=== PATIENT | female | born 1955 | race African-American/Black ===

== ENCOUNTER 2018-01-22 20:41 | Inpatient (IN) | payer BC ==
[2018-01-22] MEDS ORDERED: Aspirin 325 MG TAB ONE (22:03)
[2018-01-23] MEDS ORDERED: niCARdipine HCl 25 MG in Sodium Chloride 0.9% 250 ML 240 ML IVPB SCH ×2 (01:30→05:30)
[2018-01-23] MEDS ORDERED: Metoprolol Tartrate 50 MG TAB PO SCH ×2 (02:00→09:00)
[2018-01-23] MEDS ORDERED: Senokot S 8.6-50 MG TAB PO PRN (03:35)
[2018-01-23] MEDS ORDERED: Zolpidem Tartrate 5 MG TAB PO PRN (03:35)
[2018-01-23] MEDS ORDERED: Ondansetron ODT 4 MG TAB PO PRN (03:35)
[2018-01-23] MEDS ORDERED: Bisacodyl 5 MG TAB PO PRN (03:35)
[2018-01-23] MEDS ORDERED: Ondansetron PF 4 MG/2 ML Vial IVP PRN (03:35)
[2018-01-23] MEDS ORDERED: Loperamide HCl 2 MG CAP PO PRN (07:46)
[2018-01-23] MEDS ORDERED: Eucerin (Mineral Oil/Petrolatum,White) 30 gm Jar TOP PRN (07:46)
[2018-01-23] MEDS ORDERED: Diabetic Tussin 200 MG/10 ML UDCUP PO PRN (07:46)
[2018-01-23] MEDS ORDERED: Sodium Chloride 0.65% Nasal 44 ML BOT EA NARE PRN (07:46)
[2018-01-23] MEDS ORDERED: Artificial Tears 18 DROP/0.9 ML EA EYE PRN (07:46)
[2018-01-23] MEDS ORDERED: Labetalol HCl 100 MG/20 ML VIAL SLOW IVP PRN (07:46)
[2018-01-23] MEDS ORDERED: hydrALAZINE 20 MG/ML VIAL SLOW IVP PRN (07:46)
[2018-01-23] MEDS ORDERED: Loratadine 10 MG TAB PO PRN (07:46)
[2018-01-23] MEDS ORDERED: Cepastat Lozenges 1 LOZ PO PRN (07:46)
--- NOTE | 2018-01-23 07:52 | HP ---
CHIEF COMPLAINT: Hypertension. HISTORY OF PRESENT ILLNESS: This is a 62-year-old female with past medical history of atrial fibrillation, hypertension, and noncompliance, presenting with hypertension. The patient was transferred from [facility]. The patient had a blood pressure of 227/136. The patient states that she has not been able to afford her blood pressure medications and she runs out of the medications a week ago. The patient has been having symptoms of vision changes on the day of admission and the patient states that the vision change has not progressively gotten better since she has been treated in the ED and her blood pressure has been lowered. The patient also endorses sinus congestion and visual changes, which have been ongoing for the past 2 days. Otherwise, the patient denies fever, chills, dizziness, headaches, shortness of breath, palpitations, abdominal pain, dysuria, hematuria, hematochezia, or melena. REVIEW OF SYSTEMS: Positive for malaise, vision changes, and hypertension. Otherwise as documented in the HPI, all other systems were reviewed and are negative. PAST MEDICAL HISTORY: Hypertension, atrial fibrillation. FAMILY HISTORY: Nonsignificant to this visit. PAST SURGICAL HISTORY: Tubal ligation. PSYCHIATRIC HISTORY: No previous psych history. SOCIAL HISTORY: The patient drinks occasionally on weekends. The patient denies any illicit drug use. The patient smokes half a pack a day, and the patient has been smoking for the past 20 years. The patient lives at home with her family. ALLERGIES: NO KNOWN DRUG ALLERGIES. CURRENT MEDICATIONS: None. PHYSICAL EXAMINATION: VITAL SIGNS: The patient's blood pressure 153/100, pulse of 99, respiratory rate of 21, and O2 saturation of 99 on room air. GENERAL: The patient is lying in bed. She states that she is feeling well. Does not appear to be in any acute distress. The patient is alert and oriented x3. HEENT: Normocephalic, atraumatic. Pupils are equally round and reactive to light. Extraocular movements are intact. No scleral icterus. No conjunctival pallor. NECK: Trachea is midline. Full range of motion. Supple. RESPIRATORY: Clear to auscultation bilaterally. No wheezing, no rales, no rhonchi are appreciated. CARDIAC: The patient is tachycardic. ABDOMEN: Soft, nontender, and nondistended. Obese abdomen. Positive bowel sounds in all quadrants. EXTREMITIES: 5/5 upper extremity strength. Good pulses bilaterally. Lower extremities; 5/5 lower extremity strength. the patient has 1+ pitting edema. NEUROLOGIC: Cranial nerves II through XII grossly intact. No neurologic deficits noted. SKIN: Warm, dry, and intact. PSYCH: Normal affect. IMAGING DATA: CT of the head is negative. LABORATORY DATA: WBC is 7.2, hemoglobin is 13.7, hematocrit is 45.1, and platelet count is 392. Sodium is 136, potassium is 4.3, chloride is 104, carbon dioxide of 20, anion gap of 16, creatinine is 1.04, and glucose is 157. AST is 37, ALT is 39, and alkaline phosphatase is 165. ASSESSMENT AND PLAN: This is a 62-year-old female, being admitted for: 1. Hypertensive emergency. At this point, the patient is being admitted to the CCU. The patient is on nicardipine drip. We are going to continue nicardipine drip. We are going to monitor the patient's blood pressure closely. We are going to try and keep the patient's blood pressure around 150 to 160 systolic. 2. Hypertension, uncontrolled due to noncompliance. We have consulted disease case manager rn. The patient will benefit from coupons to the outpatient for medications and the patient has been advised on compliance with her medications. 3. Atrial fibrillation: The patient does not take her medications. At this point, the patient has been advised to take her medication and to follow up on her health and to visit her primary care doctors. 4. Deep vein thrombosis/gastrointestinal prophylaxis. Job ID: [id number]
[2018-01-23] MEDS: Acetaminophen 325 MG TAB PO PRN ×2 (08:18→19:02)
[2018-01-23] MEDS: Enoxaparin Sodium 40 MG/0.4 ML SYRINGE SC SCH (08:19)
[2018-01-23] MEDS: Metoprolol Tartrate 50 MG TAB PO SCH ×2 (08:19→22:09)
[2018-01-23] MEDS: Famotidine 20 MG TAB PO SCH ×2 (08:19→21:55)
[2018-01-23] MEDS ORDERED: Famotidine/PF 20 mg/2ml Vial SLOW IVP SCH (09:00)
[2018-01-23] MEDS ORDERED: Lisinopril/Hydrochlorothiazide 10 mg/12.5 mg Tablet PO SCH (10:45)
--- NOTE | 2018-01-23 10:46 | PDOC.PN ---
- Subjective Encounter Start Date: 01/23/18 Encounter Start Time: 07:30 Patient seen and examined. No new complaints. No overnight events he has visual loss on right side - Objective Resuscitation Status - Order Detail: 01/23/18 03:35 Resuscitation Status Routine Resuscitation Status: FULL: Full Resuscitation MAR Reviewed: Yes Vital Signs & Weight: Vital Signs (12 hours) Temp Pulse Ox 01/23/18 07:37 96 01/23/18 07:00 98.2 F 01/23/18 04:00 98.3 F 01/23/18 02:00 98.7 F 01/23/18 01:45 99 Weight Admit Weight 235 lb 7.259 oz Weight 235 lb 7.259 oz Most Recent Monitor Data Heart Rate from ECG 67 NIBP 159/90 NIBP BP-Mean 113 Respiration from ECG 16 SpO2 96 I&O: 01/22/18 01/23/18 01/24/18 06:59 06:59 06:59 Intake Total 262.7 Output Total 200 0 Balance 62.7 0 EKG Reviewed by me: Yes (nsr) Phys Exam - Physical Examination Constitutional: NAD HEENT: PERRLA, moist MMs, sclera anicteric Neck: no JVD, supple Respiratory: no wheezing, no rales, no rhonchi Cardiovascular: RRR, no significant murmur, no rub Gastrointestinal: soft, non-tender, no distention, positive bowel sounds Musculoskeletal: no edema, pulses present Neurological: non-focal, normal sensation, moves all 4 limbs Lymphatic: no nodes Psychiatric: normal affect, A&O x 3 Skin: no rash, normal turgor Dx/Plan (1) Hypertensive emergency Code(s): I16.1 - HYPERTENSIVE EMERGENCY Status: Acute (2) Hypertension Code(s): I10 - ESSENTIAL (PRIMARY) HYPERTENSION Status: Chronic (3) Obesity (BMI 30-39.9) Code(s): E66.9 - OBESITY, UNSPECIFIED Status: Chronic (4) Tobacco abuse Code(s): Z72.0 - TOBACCO USE Status: Chronic (5) Visual changes Code(s): H53.9 - UNSPECIFIED VISUAL DISTURBANCE Status: Acute - Plan cont current plan of care * will add lisinopril/hctz 10/12.5 mg po today * will wean off cardene drip * will get mri brain * lipid profile tomorrow * once cardene drip off, transfer to tele/stroke * will adjust bp meds * medication reviewed as below * symptomatic treatment . Review of Systems - Review of Systems Eyes: Vision Change. negative: Pain, Conjunctivae Inflammation, Eyelid Inflammation, Redness, Other ENT: negative: Ear Pain, Ear Discharge, Nose Pain, Nose Discharge, Nose Congestion, Mouth Pain, Mouth Swelling, Throat Pain, Throat Swelling, Other Respiratory: negative: Cough, Dry, Shortness of Breath, Hemoptysis, SOB with Excertion, Pleuritic Pain, Sputum, Wheezing Cardiovascular: negative: chest pain, palpitations, orthopnea, paroxysmal nocturnal dyspnea, edema, light headedness, other Gastrointestinal: negative: Nausea, Vomiting, Abdominal Pain, Diarrhea, Constipation, Melena, Hematochezia, Other Genitourinary: negative: Dysuria, Frequency, Incontinence, Hematuria, Retention , Other Musculoskeletal: negative: Neck Pain, Shoulder Pain, Arm Pain, Back Pain, Hand Pain, Leg Pain, Foot Pain, Other Skin: negative: Rash, Lesions, Saroj, Bruising, Other - Medications/Allergies Allergies/Adverse Reactions: Allergies Allergy/AdvReac Type Severity Reaction Status Date / Time No Known Drug Allergies Allergy Verified 01/23/18 01:38 Medications: Current Medications Acetaminophen (Tylenol) 650 mg PO Q4H PRN PRN Reason: Headache/Fever/Mild Pain (1-3) Last Admin: 01/23/18 08:18 Dose: 650 mg Artificial Tears (Tears Naturale) 2 drop EA EYE PRN PRN PRN Reason: Dry Eyes Bisacodyl (Dulcolax) 10 mg PO DAILYPRN PRN PRN Reason: Constipation Clonidine (Catapres) 0.1 mg PO Q4H PRN PRN Reason: SBP Greater Than 170 Enoxaparin Sodium (Lovenox) 40 mg SC 0900 [facility] Last Admin: 01/23/18 08:19 Dose: 40 mg Famotidine (Pepcid) 20 mg SLOW IVP Q12HR [facility] Last Admin: 01/23/18 07:23 Dose: Not Given Famotidine (Pepcid) 20 mg PO BID [facility] Last Admin: 01/23/18 08:19 Dose: 20 mg Guaifenesin (Robitussin Sf) 200 mg PO Q4H PRN PRN Reason: Cough Lisinopril/HCTZ (Prinizide 10-12.5) 1 tab PO NOW [facility] Stop: 01/23/18 12:45 Lisinopril/HCTZ (Prinizide 10-12.5) 1 tab PO DAILY [facility] Hydralazine HCl (Apresoline) 10 mg SLOW IVP Q4H PRN PRN Reason: SBP Greater Than 170 Nicardipine HCl 25 mg/ Sodium (Chloride) 250 mls @ 0 mls/hr IVPB INF MIR[place]; Protocol Labetalol HCl (Normodyne) 20 mg SLOW IVP Q4H PRN PRN Reason: SBP > 180 and HR >/= 70 Loperamide HCl (Imodium) 2 mg PO PRN PRN PRN Reason: Diarrhea/Loose Stools Loratadine (Claritin) 10 mg PO DAILYPRN PRN PRN Reason: Sinus Symptoms Metoprolol Tartrate (Lopressor) 50 mg PO BID [facility] Last Admin: 01/23/18 08:19 Dose: 50 mg Mineral Oil/White Petrolatum (Eucerin Cream) 0 gm TOP BIDPRN PRN PRN Reason: Dry Skin Ondansetron HCl (Zofran Odt) 4 mg PO Q6H PRN PRN Reason: Nausea/Vomiting Ondansetron HCl (Zofran) 4 mg IVP Q6H PRN PRN Reason: Nausea/Vomiting Senna/Docusate Sodium (Senokot S) 2 tab PO BID PRN PRN Reason: Constipation Sodium Chloride (Flush - Normal Saline) 10 ml IVF Q12HR [facility] Last Admin: 01/23/18 10:40 Dose: 10 ml Sodium Chloride (Flush - Normal Saline) 10 ml IVF PRN PRN PRN Reason: Saline Flush Sodium Chloride ([place] Nasal [place] 0.65%) 0 ml EA NARE QIDPRN PRN PRN Reason: Nasal Congestion Throat Lozenges (Cepastat Lozenges) 1 [place] PO Q2H PRN PRN Reason: Sore Throat Zolpidem Tartrate (Ambien) 5 mg PO HSPRN PRN PRN Reason: Insomnia
--- NOTE | 2018-01-23 12:01 | CON ---
DATE OF CONSULTATION: 01/23/2018 SERVICE: Pulmonary Medicine. REASON FOR CONSULT: ICU patient. HISTORY OF PRESENT ILLNESS: The patient is a 62-year-old female with past medical history significant for essentially nothing other than hypertension. She was in her usual state of health when she had an abrupt onset of visual disturbances. She had a right visual field deficit. Ultimately, she presented to the emergency department. They worked her up and called her hypertensive emergency. They put her on a Cardizem drip and tucked her in the ICU. Overnight, this has been weaned down significantly. She denies any fevers, chills, nausea, or vomiting. Prior to the abrupt onset of neurologic changes, she had absolutely no complaints. She does not have any known lung problems. PAST MEDICAL HISTORY: 1. Hypertension. 2. Atrial fibrillation. FAMILY HISTORY: Noncontributory. PAST SURGICAL HISTORY: Tubal ligation. SOCIAL HISTORY: She occasionally drinks some alcohol in the weekends, but never to excess at this point in her life. She denies any illicit drugs. She smokes half a pack on a daily basis and has a greater than [id number] history of smoking. She has no exposure to chemicals, dust, asbestos, or tuberculosis. ALLERGIES: NO KNOWN DRUG ALLERGIES. MEDICATIONS: List of her inpatient medications was reviewed. Multiple updates were made. PHYSICAL EXAMINATION: VITAL SIGNS: Afebrile, pulse 67, blood pressure 132/82, respirations 13, and saturation 100% on room air. GENERAL: The patient is awake, alert, in no apparent distress. LUNGS: Excellent air entry with no prolonged expiratory phase, wheezing, rhonchi, or crackles. HEART: Normal rate and regular. ABDOMEN: Soft, nontender, and nondistended. Bowel sounds are positive. MUSCULOSKELETAL: No cyanosis or clubbing. There is no pitting in the bilateral lower extremities. NEUROLOGIC: She has a right field deficit. Otherwise, cranial nerves are intact. Strength is symmetric throughout upper and lower extremities, and her sensation is also intact. Cerebellar findings including dysdiadochokinesia and rapidly alternating movements are normal. IMAGIN. CT of the brain demonstrates no acute intracranial abnormality. There is a remote left jordan-occipital infarction. 2. Chest x-ray demonstrates no acute cardiopulmonary abnormality. ASSESSMENT: 1. Cerebrovascular accident of the left occipital region, suspected. 2. Hypertension. 3. History of atrial fibrillation, currently in sinus rhythm. DISCUSSION AND PLAN: The patient will go for an MRI of the brain. We will put her on an aspirin and Neurology consultation will be placed. Pulmonary Critical Care will continue to follow along while she remains in this location. I do not want her blood pressures to be aggressively controlled as this is not a hypertensive emergency. It is more likely to represent an acute CVA in the occipital region. Job ID: [id number]
[2018-01-23] MEDS: cloNIDine 0.1 MG TAB PO PRN (22:09)
[2018-01-24] MEDS: cloNIDine 0.1 MG TAB PO PRN (03:34)
[2018-01-24 05:27] VITALS: BMI 39.9
[2018-01-24 05:27] LABS: #Basophils 0.1 thou/uL (0.0-0.2); #Eosinphils 0.1 thou/uL (0.0-0.7); #Lymphocytes 3.2 thou/uL (1.20-3.40); #Monocytes 0.9 thou/uL (0.11-0.59); #Neutrophils 4.9 thou/uL (1.40-6.50); %Basophils 0.6 % (0.0-1.0); %Eosinophils 0.6 % (0.0-10.0); %Lymphocytes 35.1 % (21.0-51.0); %Monocytes 9.3 % (0.0-10.0); %Neutrophils 54.3 % (42.0-75.0); Hemoglobin 12.8 g/dL (12.0-16.0); Mean Corpuscular HGB CONC 31.3 g/dL (32.0-36.0); Mean Corpuscular Hemoglobin 28.7 pg (27.0-31.0); Mean Corpuscular Volume 91.7 fL (78.0-98.0); Mean Platelet Volume 8.2 fL (7.4-10.4); Platelet Count 303 thou/uL (130-400); RBC Distribution Width 13.2 % (11.5-14.5); Red Blood Cell (RBC) Count 4.46 mill/uL (4.20-5.40); White Blood Cell (WBC) Count 9.1 thou/uL (4.8-10.8)
[2018-01-24 05:36] LABS: Anion Gap 11 mmol/L (10-20); BUN (Urea Nitrogen) 16 mg/dL (9.8-20.1); Calc. Creatinine Clearance 99 mL/min (70-130); Calcium 9.5 mg/dL (7.8-10.44); Carbon Dioxide 25 mmol/L (23-31); Cardiac Risk 4.9 (Less than 4.5); Chloride 105 mmol/L (98-107); Cholesterol 193 mg/dl (< 200 Desired); Estimated GFR-MDRD 68; Glucose 109 mg/dL (80-115); HDL Cholesterol 39 mg/dL (>60 Neg Risk); LDL Cholesterol, Calculated 134 mg/dL; Potassium 4.2 mmol/L (3.5-5.1); Sodium 137 mmol/L (136-145); Triglycerides 99 mg/dL (Less than 150)
[2018-01-24] MEDS: Enoxaparin Sodium 40 MG/0.4 ML SYRINGE SC SCH (09:14)
[2018-01-24] MEDS: Famotidine 20 MG TAB PO SCH (09:14)
[2018-01-24] MEDS: Metoprolol Tartrate 50 MG TAB PO SCH ×2 (09:14→21:10)
[2018-01-24] MEDS: Lisinopril/Hydrochlorothiazide 10 mg/12.5 mg Tablet PO SCH (09:17)
[2018-01-24] MEDS: Acetaminophen 325 MG TAB PO PRN (10:08)
--- NOTE | 2018-01-24 11:58 | PDOC.PN ---
- Subjective Encounter Start Date: 01/24/18 Encounter Start Time: 10:00 Patient seen and examined. No new complaints. No overnight events - Objective Resuscitation Status - Order Detail: 01/23/18 03:35 Resuscitation Status Routine Resuscitation Status: FULL: Full Resuscitation MAR Reviewed: Yes Vital Signs & Weight: Vital Signs (12 hours) Temp Pulse BP 01/24/18 09:17 77 148/74 H 01/24/18 04:00 98.1 F 01/24/18 03:34 157/91 H 01/24/18 00:00 98.9 F Weight Admit Weight 235 lb 7.259 oz Weight 240 lb 1.334 oz Most Recent Monitor Data Heart Rate from ECG 70 NIBP 148/74 NIBP BP-Mean 98 Respiration from ECG 17 SpO2 98 I&O: 01/23/18 01/24/18 01/25/18 06:59 06:59 06:59 Intake Total 262.7 1517 Output Total 200 775 Balance 62.7 742 Result Diagrams: 01/24/18 04:31 01/24/18 04:31 EKG Reviewed by me: Yes (nsr) Phys Exam - Physical Examination Constitutional: NAD HEENT: PERRLA, moist MMs, sclera anicteric Neck: no JVD, supple Respiratory: no wheezing, no rales, no rhonchi Cardiovascular: RRR, no significant murmur, no rub Gastrointestinal: soft, non-tender, no distention, positive bowel sounds Musculoskeletal: no edema, pulses present Neurological: non-focal, normal sensation, moves all 4 limbs Lymphatic: no nodes Psychiatric: normal affect Skin: no rash, normal turgor Dx/Plan (1) Hypertensive emergency Code(s): I16.1 - HYPERTENSIVE EMERGENCY Status: Acute (2) Hypertension Code(s): I10 - ESSENTIAL (PRIMARY) HYPERTENSION Status: Chronic (3) Obesity (BMI 30-39.9) Code(s): E66.9 - OBESITY, UNSPECIFIED Status: Chronic (4) Tobacco abuse Code(s): Z72.0 - TOBACCO USE Status: Chronic (5) Visual changes Code(s): H53.9 - UNSPECIFIED VISUAL DISTURBANCE Status: Acute - Plan cont current plan of care * MRI brain today * transfer to stroke floor * medication reviewed as below * symptomatic treatment * adjust BP meds. Review of Systems - Review of Systems Eyes: Vision Change. negative: Pain, Conjunctivae Inflammation, Eyelid Inflammation, Redness, Other ENT: negative: Ear Pain, Ear Discharge, Nose Pain, Nose Discharge, Nose Congestion, Mouth Pain, Mouth Swelling, Throat Pain, Throat Swelling, Other Respiratory: negative: Cough, Dry, Shortness of Breath, Hemoptysis, SOB with Excertion, Pleuritic Pain, Sputum, Wheezing Cardiovascular: negative: chest pain, palpitations, orthopnea, paroxysmal nocturnal dyspnea, edema, light headedness, other Gastrointestinal: negative: Nausea, Vomiting, Abdominal Pain, Diarrhea, Constipation, Melena, Hematochezia, Other Genitourinary: negative: Dysuria, Frequency, Incontinence, Hematuria, Retention , Other Musculoskeletal: negative: Neck Pain, Shoulder Pain, Arm Pain, Back Pain, Hand Pain, Leg Pain, Foot Pain, Other Skin: negative: Rash, Lesions, Saroj, Bruising, Other - Medications/Allergies Allergies/Adverse Reactions: Allergies Allergy/AdvReac Type Severity Reaction Status Date / Time No Known Drug Allergies Allergy Verified 01/23/18 01:38 Medications: Current Medications Acetaminophen (Tylenol) 650 mg PO Q4H PRN PRN Reason: Headache/Fever/Mild Pain (1-3) Last Admin: 01/24/18 10:08 Dose: 650 mg Artificial Tears (Tears Naturale) 2 drop EA EYE PRN PRN PRN Reason: Dry Eyes Bisacodyl (Dulcolax) 10 mg PO DAILYPRN PRN PRN Reason: Constipation Clonidine (Catapres) 0.1 mg PO Q4H PRN PRN Reason: SBP Greater Than 170 Last Admin: 01/24/18 03:34 Dose: 0.1 mg Enoxaparin Sodium (Lovenox) 40 mg SC 0900 [facility] Last Admin: 01/24/18 09:14 Dose: 40 mg Famotidine (Pepcid) 20 mg PO BID [facility] Last Admin: 01/24/18 09:14 Dose: 20 mg Guaifenesin (Robitussin Sf) 200 mg PO Q4H PRN PRN Reason: Cough Lisinopril/HCTZ (Prinizide 10-12.5) 1 tab PO DAILY [facility] Last Admin: 01/24/18 09:17 Dose: 1 tab Hydralazine HCl (Apresoline) 10 mg SLOW IVP Q4H PRN PRN Reason: SBP Greater Than 170 Labetalol HCl (Normodyne) 20 mg SLOW IVP Q4H PRN PRN Reason: SBP > 180 and HR >/= 70 Loperamide HCl (Imodium) 2 mg PO PRN PRN PRN Reason: Diarrhea/Loose Stools Loratadine (Claritin) 10 mg PO DAILYPRN PRN PRN Reason: Sinus Symptoms Last Admin: 01/24/18 10:08 Dose: 10 mg Metoprolol Tartrate (Lopressor) 50 mg PO BID [facility] Last Admin: 01/24/18 09:14 Dose: 50 mg Mineral Oil/White Petrolatum (Eucerin Cream) 0 gm TOP BIDPRN PRN PRN Reason: Dry Skin Ondansetron HCl (Zofran Odt) 4 mg PO Q6H PRN PRN Reason: Nausea/Vomiting Ondansetron HCl (Zofran) 4 mg IVP Q6H PRN PRN Reason: Nausea/Vomiting Senna/Docusate Sodium (Senokot S) 2 tab PO BID PRN PRN Reason: Constipation Sodium Chloride (Flush - Normal Saline) 10 ml IVF Q12HR [facility] Last Admin: 01/24/18 09:17 Dose: 10 ml Sodium Chloride (Flush - Normal Saline) 10 ml IVF PRN PRN PRN Reason: Saline Flush Sodium Chloride ([place] Nasal [place] 0.65%) 0 ml EA NARE QIDPRN PRN PRN Reason: Nasal Congestion Throat Lozenges (Cepastat Lozenges) 1 [place] PO Q2H PRN PRN Reason: Sore Throat Zolpidem Tartrate (Ambien) 5 mg PO HSPRN PRN PRN Reason: Insomnia
--- NOTE | 2018-01-24 11:59 | MRI ---
MRI BRAIN WITHOUT CONTRAST: Date: 01/24/18 INDICATION: Right side visual loss. Reference made to head CT 2 days prior. FINDINGS: Large region of FLAIR and T2 hyperintensity of the left occipitotemporal lobe is present with restric mandi diffusion compatible with a subacute infarction. No evidence of hemorrhagic transformation. Bilat eral periventricular signal abnormalities are compatible with mild to moderate chronic ischemic disea se. There is mild parenchymal volume loss with mild compensatory dilatation of the ventricular system . The large, central skull base flow-voids are patent. There is mild signal alteration at the imaged distal left vertebral artery, incompletely assessed. There is a remote lacunar infarction of the left cerebellar hemisphere. IMPRESSION: 1. Moderate sized subacute left LOG TURNER distribution infarction. 2. Remote lacunar infarction of left cerebellar hemisphere. 3. Mild to moderate chronic microvascular ischemic disease. 4. Asymmetric signal alteration of the partially imaged distal left vertebral flow-void. Consider de dicated vascular imaging follow-up for further evaluation. POS: TPC
--- NOTE | 2018-01-24 16:01 | PRG ---
DATE OF SERVICE: 01/24/2018 SERVICE: Pulmonary Medicine. INTERVAL HISTORY: The patient is doing fine from respiratory standpoint. She is breathing comfortably. There has been no interval change to her condition. She continues to have a dense right-sided hemianopsia. PHYSICAL EXAMINATION: VITAL SIGNS: Afebrile, pulse 63, blood pressure 130/57, respirations 18, saturation 96% on room air. GENERAL: The patient is awake, alert, in no apparent distress. LUNGS: Excellent air entry. There is no prolonged expiratory phase or wheezing. HEART: Normal rate and regular ABDOMEN: Soft, nontender, nondistended. Bowel sounds are positive. MUSCULOSKELETAL: No cyanosis or clubbing. No pitting in the bilateral lower extremities. : No Loco. NEUROLOGIC: Dense right-sided hemianopsia is present. Outside of that, she has no acute focal neurologic deficits. LABORATORY DATA: CBC and CMP are completely unremarkable. ASSESSMENT: 1. Cerebrovascular accident of the left occipital lobe. 2. Hypertension. 3. Atrial fibrillation, paroxysmal, but currently normal sinus rhythm. DISCUSSION AND PLAN: The patient is stable for transition out of the ICU to the medical unit. Neurology consultation will be placed. From my perspective, she should be a candidate for anticoagulation moving forward given her stroke and history of paroxysmal atrial fibrillation. When she arrived on the floor, she had no further requirements for inpatient pulmonary critical care opinion, and I will sign off. Please call with additional questions or concerns moving forward. Job ID: [id number]
--- NOTE | 2018-01-25 02:04 | CON ---
DATE OF CONSULTATION: 01/24/2018 TYPE OF CONSULTATION: Neurology CONSULTING PHYSICIAN: Hospitalist Services. IMPRESSION: 1. Hypertensive urgency. 2. Left occipital lobe stroke with right visual field deficit. PLAN: 1. Blood pressure control. 2. Aspirin 325 mg per day. 3. Statin. 4. Carotid ultrasound. 5. Echocardiogram. HISTORY OF PRESENT ILLNESS: Ms. Petersen is a 62-year-old black female with a history of hypertension. She was not compliant with her medication and presented with complaints of blurred vision and a headache. She was markedly hypertensive with pressures over 200 systolic and 115 diastolic. She was subsequently transferred here for care from [facility]. MRI of the brain revealed an acute area of cerebral infarction and a moderate amount of microvascular disease. She denies any past history of stroke. PAST MEDICAL HISTORY: As noted above. ALLERGIES: NONE. SOCIAL HISTORY: Positive for tobacco. FAMILY HISTORY: Noncontributory. REVIEW OF SYSTEMS: Unremarkable otherwise for any focal deficits. PHYSICAL EXAMINATION: GENERAL: She is a somewhat overweight middle-aged woman, in no acute distress. VITAL SIGNS: Blood pressure 155/91, pulse 76 in the sinus rhythm. HEENT: Pupils are equal and reactive. Conjunctivae are clear. Oropharynx is clear. NECK: Supple. EXTREMITIES: No cyanosis or edema. NEUROLOGIC: She is alert and cooperative. Her speech is fluent and clear. She has a fairly dense right homonymous hemianopsia. Her exam is otherwise nonfocal. SUMMARY: Proceed with the above noted recommendations and likely she can be discharged home shortly. She will not be able to drive motor vehicle for the foreseeable future. Job ID: [id number]
--- NOTE | 2018-01-25 09:34 | PDOC.PN ---
- Subjective Encounter Start Date: 01/25/18 Encounter Start Time: 07:20 Patient seen and examined. No new complaints. No overnight events - Objective Resuscitation Status - Order Detail: 01/23/18 03:35 Resuscitation Status Routine Resuscitation Status: FULL: Full Resuscitation MAR Reviewed: Yes Vital Signs & Weight: Vital Signs (12 hours) Temp Pulse Resp BP Pulse Ox 01/25/18 06:35 98 01/25/18 04:00 99.2 F 83 18 143/81 H 98 01/25/18 00:00 98.1 F 73 18 142/67 H 96 Weight Admit Weight 235 lb 7.259 oz Weight 240 lb 1.334 oz Most Recent Monitor Data Heart Rate from ECG 81 NIBP 155/92 NIBP BP-Mean 113 Respiration from ECG 15 SpO2 97 I&O: 01/24/18 01/25/18 01/26/18 06:59 06:59 06:59 Intake Total 1517 780 Output Total 775 1030 Balance 742 -250 Result Diagrams: 01/24/18 04:31 01/24/18 04:31 Radiology Reviewed by me: Yes (MRI brain reviewed) EKG Reviewed by me: Yes (NSR) Phys Exam - Physical Examination Constitutional: NAD HEENT: PERRLA, moist MMs, sclera anicteric Neck: no JVD, supple Respiratory: no wheezing, no rales, no rhonchi Cardiovascular: RRR, no significant murmur, no rub Gastrointestinal: soft, non-tender, no distention, positive bowel sounds Musculoskeletal: no edema, pulses present Neurological: non-focal, normal sensation, moves all 4 limbs Psychiatric: normal affect, A&O x 3 Skin: no rash, normal turgor Dx/Plan (1) CVA (cerebral vascular accident) Code(s): I63.9 - CEREBRAL INFARCTION, UNSPECIFIED Status: Acute Qualifiers: Precerebral and cerebral artery: posterior cerebral artery Laterality of affected vessel: left (2) Hypertensive emergency Code(s): I16.1 - HYPERTENSIVE EMERGENCY Status: Resolved (3) Hypertension Code(s): I10 - ESSENTIAL (PRIMARY) HYPERTENSION Status: Chronic (4) Obesity (BMI 30-39.9) Code(s): E66.9 - OBESITY, UNSPECIFIED Status: Chronic (5) Tobacco abuse Code(s): Z72.0 - TOBACCO USE Status: Chronic (6) Visual changes Code(s): H53.9 - UNSPECIFIED VISUAL DISTURBANCE Status: Acute Comment: due to cva - Plan cont current plan of care * medication reviewed as below * symptomatic treatment * stroke team today * echo and carotid today * change lipitor 40 mg bedtime. Review of Systems - Review of Systems Eyes: Vision Change. negative: Pain, Conjunctivae Inflammation, Eyelid Inflammation, Redness, Other ENT: negative: Ear Pain, Ear Discharge, Nose Pain, Nose Discharge, Nose Congestion, Mouth Pain, Mouth Swelling, Throat Pain, Throat Swelling, Other Respiratory: negative: Cough, Dry, Shortness of Breath, Hemoptysis, SOB with Excertion, Pleuritic Pain, Sputum, Wheezing Cardiovascular: negative: chest pain, palpitations, orthopnea, paroxysmal nocturnal dyspnea, edema, light headedness, other Gastrointestinal: negative: Nausea, Vomiting, Abdominal Pain, Diarrhea, Constipation, Melena, Hematochezia, Other Genitourinary: negative: Dysuria, Frequency, Incontinence, Hematuria, Retention , Other Musculoskeletal: negative: Neck Pain, Shoulder Pain, Arm Pain, Back Pain, Hand Pain, Leg Pain, Foot Pain, Other - Medications/Allergies Allergies/Adverse Reactions: Allergies Allergy/AdvReac Type Severity Reaction Status Date / Time No Known Drug Allergies Allergy Verified 01/23/18 01:38 Medications: Current Medications Acetaminophen (Tylenol) 650 mg PO Q4H PRN PRN Reason: Headache/Fever/Mild Pain (1-3) Last Admin: 01/24/18 10:08 Dose: 650 mg Artificial Tears (Tears Naturale) 2 drop EA EYE PRN PRN PRN Reason: Dry Eyes Aspirin (Ecotrin) 325 mg PO DAILY [facility] Atorvastatin Calcium (Lipitor) 40 mg PO HS [facility] Bisacodyl (Dulcolax) 10 mg PO DAILYPRN PRN PRN Reason: Constipation Clonidine (Catapres) 0.1 mg PO Q4H PRN PRN Reason: SBP Greater Than 170 Last Admin: 01/24/18 03:34 Dose: 0.1 mg Enoxaparin Sodium (Lovenox) 40 mg SC 0900 [facility] Last Admin: 01/24/18 09:14 Dose: 40 mg Guaifenesin (Robitussin Sf) 200 mg PO Q4H PRN PRN Reason: Cough Lisinopril/HCTZ (Prinizide 10-12.5) 1 tab PO DAILY [facility] Last Admin: 01/24/18 09:17 Dose: 1 tab Hydralazine HCl (Apresoline) 10 mg SLOW IVP Q4H PRN PRN Reason: SBP Greater Than 170 Labetalol HCl (Normodyne) 20 mg SLOW IVP Q4H PRN PRN Reason: SBP > 180 and HR >/= 70 Loperamide HCl (Imodium) 2 mg PO PRN PRN PRN Reason: Diarrhea/Loose Stools Loratadine (Claritin) 10 mg PO DAILYPRN PRN PRN Reason: Sinus Symptoms Last Admin: 01/24/18 10:08 Dose: 10 mg Metoprolol Tartrate (Lopressor) 50 mg PO BID [facility] Last Admin: 01/24/18 21:10 Dose: 50 mg Mineral Oil/White Petrolatum (Eucerin Cream) 0 gm TOP BIDPRN PRN PRN Reason: Dry Skin Ondansetron HCl (Zofran Odt) 4 mg PO Q6H PRN PRN Reason: Nausea/Vomiting Ondansetron HCl (Zofran) 4 mg IVP Q6H PRN PRN Reason: Nausea/Vomiting Senna/Docusate Sodium (Senokot S) 2 tab PO BID PRN PRN Reason: Constipation Sodium Chloride (Flush - Normal Saline) 10 ml IVF Q12HR [facility] Last Admin: 01/24/18 21:19 Dose: 10 ml Sodium Chloride (Flush - Normal Saline) 10 ml IVF PRN PRN PRN Reason: Saline Flush Sodium Chloride ([place] Nasal [place] 0.65%) 0 ml EA NARE QIDPRN PRN PRN Reason: Nasal Congestion Throat Lozenges (Cepastat Lozenges) 1 [place] PO Q2H PRN PRN Reason: Sore Throat Zolpidem Tartrate (Ambien) 5 mg PO HSPRN PRN PRN Reason: Insomnia
[2018-01-25] MEDS: Enoxaparin Sodium 40 MG/0.4 ML SYRINGE SC SCH (09:57)
[2018-01-25] MEDS: Aspirin 325 mg Enteric Coated Tablet PO SCH (09:57)
[2018-01-25] MEDS: Lisinopril/Hydrochlorothiazide 10 mg/12.5 mg Tablet PO SCH (09:57)
[2018-01-25] MEDS: Metoprolol Tartrate 50 MG TAB PO SCH ×2 (09:57→21:51)
--- NOTE | 2018-01-25 11:33 | ULT ---
CAROTID DUPLEX SONOGRAM: History: CVA. Vascular disease. FINDINGS: Right: Scattered plaque. Color and spectral doppler evaluation, peak systolic velocity of 60 cm/sec a nd IC to CC ratio of 0.7 suggests no hemodynamically significant stenosis within the extracranial rig ht ICA. Antegrade flow within the vertebral artery. Left: Scattered plaque. Color and spectral doppler evaluation, peak systolic velocity of 85 cm/sec an d IC to CC ratio of 0.9 suggests no hemodynamically significant stenosis within the extracranial left ICA. Antegrade flow within the vertebral artery. IMPRESSION: 1. Atherosclerosis. 2. No sonographic evidence of significant extracranial ICA stenosis. POS: [facility]
[2018-01-25] MEDS: Acetaminophen 325 MG TAB PO PRN (18:17)
[2018-01-25] MEDS ORDERED: Atorvastatin Calcium 40 MG TAB PO SCH (21:00)
[2018-01-25] MEDS ORDERED: Atorvastatin Calcium 20 MG TAB PO SCH (21:00)
--- NOTE | 2018-01-26 09:20 | PDOC.PN ---
- Subjective Encounter Start Date: 01/26/18 Encounter Start Time: 08:10 Patient seen and examined. No new complaints. No overnight events - Objective Resuscitation Status - Order Detail: 01/23/18 03:35 Resuscitation Status Routine Resuscitation Status: FULL: Full Resuscitation MAR Reviewed: Yes Vital Signs & Weight: Vital Signs (12 hours) Temp Pulse Resp BP Pulse Ox 01/26/18 08:07 98 01/26/18 07:43 98.5 F 74 16 137/67 98 01/26/18 04:00 98.4 F 80 18 149/65 H 98 01/26/18 00:00 98.1 F 75 18 134/63 98 Weight Admit Weight 235 lb 7.259 oz Weight 240 lb 1.334 oz Most Recent Monitor Data Heart Rate from ECG 81 NIBP 155/92 NIBP BP-Mean 113 Respiration from ECG 15 SpO2 97 I&O: 01/25/18 01/26/18 01/27/18 06:59 06:59 06:59 Intake Total 780 870 Output Total 1030 Balance -250 870 Result Diagrams: 01/24/18 04:31 01/24/18 04:31 Radiology Reviewed by me: Yes EKG Reviewed by me: Yes Phys Exam - Physical Examination Constitutional: NAD HEENT: PERRLA, moist MMs, sclera anicteric Neck: no JVD, supple Respiratory: no wheezing, no rales, no rhonchi Cardiovascular: RRR, no significant murmur, no rub Gastrointestinal: soft, non-tender, no distention, positive bowel sounds Musculoskeletal: no edema, pulses present Neurological: non-focal, normal sensation Lymphatic: no nodes Psychiatric: normal affect, A&O x 3 Skin: no rash, normal turgor Dx/Plan (1) CVA (cerebral vascular accident) Code(s): I63.9 - CEREBRAL INFARCTION, UNSPECIFIED Status: Acute Qualifiers: Precerebral and cerebral artery: posterior cerebral artery Laterality of affected vessel: left (2) Hypertensive emergency Code(s): I16.1 - HYPERTENSIVE EMERGENCY Status: Resolved (3) Hypertension Code(s): I10 - ESSENTIAL (PRIMARY) HYPERTENSION Status: Chronic (4) Obesity (BMI 30-39.9) Code(s): E66.9 - OBESITY, UNSPECIFIED Status: Chronic (5) Tobacco abuse Code(s): Z72.0 - TOBACCO USE Status: Chronic (6) Visual changes Code(s): H53.9 - UNSPECIFIED VISUAL DISTURBANCE Status: Acute Comment: due to cva - Plan cont current plan of care * medication reviewed as below * symptomatic treatment * see discharge estelle. Review of Systems - Review of Systems ENT: negative: Ear Pain, Ear Discharge, Nose Pain, Nose Discharge, Nose Congestion, Mouth Pain, Mouth Swelling, Throat Pain, Throat Swelling, Other Respiratory: negative: Cough, Dry, Shortness of Breath, Hemoptysis, SOB with Excertion, Pleuritic Pain, Sputum, Wheezing Cardiovascular: negative: chest pain, palpitations, orthopnea, paroxysmal nocturnal dyspnea, edema, light headedness, other Gastrointestinal: negative: Nausea, Vomiting, Abdominal Pain, Diarrhea, Constipation, Melena, Hematochezia, Other Genitourinary: negative: Dysuria, Frequency, Incontinence, Hematuria, Retention , Other Musculoskeletal: negative: Neck Pain, Shoulder Pain, Arm Pain, Back Pain, Hand Pain, Leg Pain, Foot Pain, Other - Medications/Allergies Allergies/Adverse Reactions: Allergies Allergy/AdvReac Type Severity Reaction Status Date / Time No Known Drug Allergies Allergy Verified 01/23/18 01:38 Medications: Current Medications Acetaminophen (Tylenol) 650 mg PO Q4H PRN PRN Reason: Headache/Fever/Mild Pain (1-3) Last Admin: 01/25/18 18:17 Dose: 650 mg Artificial Tears (Tears Naturale) 2 drop EA EYE PRN PRN PRN Reason: Dry Eyes Aspirin (Ecotrin) 325 mg PO DAILY [facility] Last Admin: 01/25/18 09:57 Dose: 325 mg Atorvastatin Calcium (Lipitor) 40 mg PO HS [facility] Last Admin: 01/25/18 21:51 Dose: 40 mg Bisacodyl (Dulcolax) 10 mg PO DAILYPRN PRN PRN Reason: Constipation Clonidine (Catapres) 0.1 mg PO Q4H PRN PRN Reason: SBP Greater Than 170 Last Admin: 01/24/18 03:34 Dose: 0.1 mg Enoxaparin Sodium (Lovenox) 40 mg SC 0900 [facility] Last Admin: 01/25/18 09:57 Dose: 40 mg Guaifenesin (Robitussin Sf) 200 mg PO Q4H PRN PRN Reason: Cough Lisinopril/HCTZ (Prinizide 10-12.5) 1 tab PO DAILY [facility] Last Admin: 01/25/18 09:57 Dose: 1 tab Hydralazine HCl (Apresoline) 10 mg SLOW IVP Q4H PRN PRN Reason: SBP Greater Than 170 Labetalol HCl (Normodyne) 20 mg SLOW IVP Q4H PRN PRN Reason: SBP > 180 and HR >/= 70 Loperamide HCl (Imodium) 2 mg PO PRN PRN PRN Reason: Diarrhea/Loose Stools Loratadine (Claritin) 10 mg PO DAILYPRN PRN PRN Reason: Sinus Symptoms Last Admin: 01/24/18 10:08 Dose: 10 mg Metoprolol Tartrate (Lopressor) 50 mg PO BID [facility] Last Admin: 01/25/18 21:51 Dose: 50 mg Mineral Oil/White Petrolatum (Eucerin Cream) 0 gm TOP BIDPRN PRN PRN Reason: Dry Skin Ondansetron HCl (Zofran Odt) 4 mg PO Q6H PRN PRN Reason: Nausea/Vomiting Ondansetron HCl (Zofran) 4 mg IVP Q6H PRN PRN Reason: Nausea/Vomiting Senna/Docusate Sodium (Senokot S) 2 tab PO BID PRN PRN Reason: Constipation Sodium Chloride (Flush - Normal Saline) 10 ml IVF Q12HR [facility] Last Admin: 01/25/18 21:51 Dose: 10 ml Sodium Chloride (Flush - Normal Saline) 10 ml IVF PRN PRN PRN Reason: Saline Flush Sodium Chloride ([facility] Nasal [place] 0.65%) 0 ml EA NARE QIDPRN PRN PRN Reason: Nasal Congestion Throat Lozenges (Cepastat Lozenges) 1 [place] PO Q2H PRN PRN Reason: Sore Throat Zolpidem Tartrate (Ambien) 5 mg PO HSPRN PRN PRN Reason: Insomnia
[2018-01-26] MEDS: Enoxaparin Sodium 40 MG/0.4 ML SYRINGE SC SCH (09:50)
[2018-01-26] MEDS: Metoprolol Tartrate 50 MG TAB PO SCH (09:50)
[2018-01-26] MEDS: Aspirin 325 mg Enteric Coated Tablet PO SCH (09:50)
[2018-01-26] MEDS: Lisinopril/Hydrochlorothiazide 10 mg/12.5 mg Tablet PO SCH (09:50)
--- NOTE | 2018-01-26 10:35 | DIS ---
DATE OF ADMISSION: 01/22/2018 DATE OF DISCHARGE: 01/26/2018 PRIMARY CARE PHYSICIAN: DISCHARGE DISPOSITION: Home. PRIMARY DISCHARGE DIAGNOSES: 1. Hypertensive emergency, controlled. 2. Acute left posterior cerebral artery territory cerebrovascular accident. 3. Medication noncompliance. 4. Carotid atherosclerosis. SECONDARY DISCHARGE DIAGNOSES: 1. Tobacco abuse disorder. 2. Hypertension. 3. Obesity with body mass index of 30. 4. Dyslipidemia. PRIMARY PROCEDURE/OPERATION: None. RADIOLOGICAL INVESTIGATION: 1. 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 2. Carotid Doppler showed carotid atherosclerosis. 3. Echocardiography showed EF 55% to 60%. LABORATORY DATA: Significant labs, hemoglobin 12.8, creatinine 1.0, and LDL 134. DISCHARGE MEDICATION: 1. Aspirin 325 mg p.o. daily. 2. Lipitor 40 mg p.o. at bedtime. 3. Prinzide 12/02.5 one tab daily. 4. Metoprolol 50 mg p.o. b.i.d. CONTRAINDICATION: None. CODE STATUS: Full code. INPATIENT COLD MILL OPERATOR: Dr. Miller was following because the patient was in ICU. Dr. Merrill Schaeffer, neurologist was consulted for stroke. TEST RESULTS PENDING ON DISCHARGE: None. ALLERGIES: NO KNOWN DRUG ALLERGIES. DISCHARGE PLAN: Post hospital, the patient will follow up with primary care physician as instructed in one week. HOSPITAL COURSE: A 62-year-old female who was admitted by Dr. Rodgers. Please see his H and P for further details. The patient was not taking her blood pressure medication and she was having hypertensive emergency on admission. She was admitted in ICU. She was treated with Cardene drip and blood pressure got under control. We started antihypertensives medication while in the hospital, and with that, her blood pressure was controlled and we discontinued Cardene drip. Subsequently, we transferred her to the Stroke floor. We did MRI brain, which showed subacute left ENVIRONMENTAL TEST TECHNICIAN territory CVA. Neurology was consulted and they did echocardiography and carotid Doppler. The patient is walking by herself. She does not want to go to rehab or SNF placement. She rather preferred to go home. All new medication prescription sent to her pharmacy. The patient is seen and examined at bedside today. Please see my progress note from today for further details. Job ID: [id number]
[2018-01-26 11:48] VITALS: TEMP 98.2
[2018-01-26 13:49] VITALS: BP 167/70
== END 2018-01-26 15:05 | disposition home or self-care (01) | DRG 304 ==
LOC: ERS 20:41 → ERHOLD 22:52 → CCU 01-23 01:26 → 2SE 01-24 18:26
PROVIDERS: ADMIT Internal Medicine; ATTEND Internal Medicine
DX: I16.1 Hypertensive emergency (principal); I63.9 Cerebral infarction, unspecified; Z68.41 Body mass index [BMI] 40.0-44.9, adult; I10 Essential (primary) hypertension; Z91.14 Patient's other noncompliance with medication regimen; F17.210 Nicotine dependence, cigarettes, uncomplicated; E66.9 Obesity, unspecified; H53.9 Unspecified visual disturbance; E78.5 Hyperlipidemia, unspecified; I48.0 Paroxysmal atrial fibrillation
CPT/HCPCS: 36415; 70551; 80048; 80061; 85025; 93306; 93880; 96365; G8978-GP-CJ; G8979-GP-CI; G8987-GO-CJ; G8988-GO-CI; G8996-GN-CI; G8997-GN-CH; J1650; J7050

== ENCOUNTER 2023-10-27 22:05 | Inpatient (IN) | payer BC, MEDICARE, SELFPAY ==
[2023-10-28 00:43] VITALS: BMI 39.0
[2023-10-28] MEDS ORDERED: Acetaminophen 325 MG TAB PO PRN (02:33)
[2023-10-28] MEDS ORDERED: hydrALAZINE 20 MG/ML VIAL SLOW IVP PRN (02:33)
[2023-10-28] MEDS ORDERED: Labetalol HCl 100 MG/20 ML VIAL SLOW IVP PRN (02:33)
[2023-10-28] MEDS ORDERED: Ondansetron PF 4 MG/2 ML Vial IVP PRN (02:33)
[2023-10-28 04:18] LABS: #Basophils 0.05 10x3/uL (0.0-0.2); %Basophils 0.5 % (0.0-1.0); %Monocytes 7.9 % (0.0-10.0); %Neutrophils 63.1 % (42.0-75.0); Hematocrit 37.3 % (36.0-47.0); Hemoglobin 11.2 g/dL (12.0-16.0); Mean Corpuscular Hemoglobin 26.5 pg (27.0-31.0); Mean Corpuscular Volume 88.2 fL (78.0-98.0); Mean Platelet Volume 9.9 fL (7.4-10.4); Platelet Count 341 10x3/uL (130-400); RBC Distribution Width 15.9 % (11.5-14.5); Red Blood Cell (RBC) Count 4.23 mill/uL (4.20-5.40)
[2023-10-28 04:49] LABS: Anion Gap 12 mmol/L (10-20); BUN (Urea Nitrogen) 15 mg/dL (9.8-20.1); Calc. Creatinine Clearance 94 mL/min (70-130); Calcium 9.2 mg/dL (7.8-10.44); Carbon Dioxide 19 mmol/L (23-31); Cardiac Risk 3.3 (Less than 4.5); Chloride 113 mmol/L (98-107); Cholesterol 117 mg/dl (< 200 Desired); Estimated GFR 65; Glucose 176 mg/dL (80-115); HDL Cholesterol 35 mg/dL (>60 Neg Risk); LDL Cholesterol, Calculated 68 mg/dL; Potassium 3.7 mmol/L (3.5-5.1); Sodium 140 mmol/L (136-145); Triglycerides 68 mg/dL (Less than 150)
[2023-10-28] MEDS: Levothyroxine Sodium 100 MCG TAB PO SCH (05:16)
[2023-10-28] MEDS: Aspirin 325 mg Enteric Coated Tablet PO SCH (08:11)
[2023-10-28] MEDS: Clopidogrel Bisulfate 75 MG TAB PO SCH (08:11)
[2023-10-28] MEDS: Multivit, Therapeutic 1 TAB PO SCH (08:11)
[2023-10-28] MEDS ORDERED: Amlodipine 10 MG TAB PO SCH (11:15)
[2023-10-28] MEDS ORDERED: Dextrose 5% in Water 1,000 ML IV PRN (11:32)
[2023-10-28] MEDS ORDERED: Insulin Regular, Human 100 UNIT/ML 10 ML VIAL SC PRN ×2 (11:32)
[2023-10-28] MEDS ORDERED: Dextrose 50% Abboject 50 ML SYRINGE SLOW IVP PRN (11:32)
[2023-10-28] MEDS ORDERED: Glucagon 1 MG/ML KIT IM PRN (11:32)
[2023-10-28] MEDS: Losartan 25 MG TAB PO SCH (12:13)
[2023-10-28] MEDS: hydrALAZINE 25 MG TAB PO SCH (20:20)
[2023-10-28] MEDS: Amlodipine 10 MG TAB PO SCH (20:20)
[2023-10-28] MEDS: Atorvastatin Calcium 40 MG TAB PO SCH (20:20)
[2023-10-28] MEDS: Latanoprost 0.005% Ophth Soln 2.5 ml Bottle EA EYE SCH (20:21)
[2023-10-29] MEDS: hydrALAZINE 20 MG/ML VIAL SLOW IVP PRN (00:02)
[2023-10-29] MEDS: Losartan 25 MG TAB PO SCH (08:03)
[2023-10-29] MEDS ORDERED: dilTIAZem 30 MG TAB PO PRN (09:25)
[2023-10-29] MEDS: Labetalol HCl 100 MG/20 ML VIAL SLOW IVP PRN (09:40)
[2023-10-29] MEDS: Cyanocobalamin (Vitamin B-12) 1,000 MCG TAB PO SCH (20:08)
[2023-10-29] MEDS: Metoprolol Tartrate 25 MG TAB PO SCH (20:08)
[2023-10-29] MEDS: Folic Acid 1 MG TAB PO SCH (20:08)
[2023-10-29] MEDS: Lorazepam 0.5 MG TAB PO SCH (20:31)
[2023-10-30 03:46] LABS: #Basophils 0.05 10x3/uL (0.0-0.2); %Basophils 0.6 % (0.0-1.0); %Eosinophils 1.7 % (0.0-10.0); %Lymphocytes 30.2 % (21.0-51.0); %Monocytes 9.1 % (0.0-10.0); %Neutrophils 58.1 % (42.0-75.0); Hematocrit 37.6 % (36.0-47.0); Hemoglobin 11.4 g/dL (12.0-16.0); Mean Corpuscular HGB CONC 30.3 g/dL (32.0-36.0); Mean Corpuscular Hemoglobin 26.5 pg (27.0-31.0); Mean Corpuscular Volume 87.2 fL (78.0-98.0); Mean Platelet Volume 9.9 fL (7.4-10.4); Platelet Count 333 10x3/uL (130-400); RBC Distribution Width 15.9 % (11.5-14.5); Red Blood Cell (RBC) Count 4.31 mill/uL (4.20-5.40)
[2023-10-30 04:05] LABS: Anion Gap 15 mmol/L (10-20); BUN (Urea Nitrogen) 19 mg/dL (9.8-20.1); Calc. Creatinine Clearance 104 mL/min (70-130); Calcium 9.4 mg/dL (7.8-10.44); Carbon Dioxide 19 mmol/L (23-31); Chloride 112 mmol/L (98-107); Estimated GFR 73; Glucose 125 mg/dL (80-115); Magnesium 2.1 mg/dL (1.6-2.6); Potassium 3.6 mmol/L (3.5-5.1); Sodium 142 mmol/L (136-145)
[2023-10-30 11:26] VITALS: BP 147/77; TEMP 98.7
[2023-10-30] MEDS ORDERED: Multivit, Therapeutic 1 TAB PO SCH (21:00)
== END 2023-10-30 14:49 | disposition home or self-care (01) | DRG 69 ==
LOC: 2SE 23:45 → OBSVTOIN 10-28 16:38
PROVIDERS: ADMIT Internal Medicine; ATTEND Internal Medicine
DX: G45.9 Transient cerebral ischemic attack, unspecified (principal); E87.20 Acidosis, unspecified; N17.9 Acute kidney failure, unspecified; I16.1 Hypertensive emergency; R29.90 Unspecified symptoms and signs involving the nervous system; I48.0 Paroxysmal atrial fibrillation; E78.5 Hyperlipidemia, unspecified; G47.33 Obstructive sleep apnea (adult) (pediatric); I12.9 Hypertensive chronic kidney disease with stage 1 through stage 4 chronic kidney disease, or unspecified chronic kidney disease; E66.9 Obesity, unspecified; E03.9 Hypothyroidism, unspecified; Z79.82 Long term (current) use of aspirin; Z79.899 Other long term (current) drug therapy; Z79.890 Hormone replacement therapy; Z88.8 Allergy status to other drugs, medicaments and biological substances; Z98.51 Tubal ligation status; Z87.891 Personal history of nicotine dependence; Z86.73 Personal history of transient ischemic attack (TIA), and cerebral infarction without residual deficits; Z68.39 Body mass index [BMI] 39.0-39.9, adult; Z71.3 Dietary counseling and surveillance; N18.2 Chronic kidney disease, stage 2 (mild); E86.0 Dehydration
CPT/HCPCS: 36415; 36416; 70551; 80048; 80061; 83735; 84443; 85025; 93005; 93010; 93306; 93880; G0378; J0360